=== PATIENT | male | born 1990 | race African-American/Black ===

== ENCOUNTER 2023-11-30 13:01 | Outpatient (CLI) | payer OTHER, SELFPAY | END 2023-11-30 13:02 | disposition home or self-care (01) | PROVIDERS: PCP Physician Assistant Medical; Visit Provider Physician Assistant Medical | DX: Z13.220 Encounter for screening for lipoid disorders (principal); Z13.1 Encounter for screening for diabetes mellitus; Z11.3 Encounter for screening for infections with a predominantly sexual mode of transmission | CPT/HCPCS: 80061; 82947; 86703; 86803 ==